=== PATIENT | female | born 1970 | race Caucasian/White ===

== ENCOUNTER 2016-08-14 06:45 | Emergency (ER) | payer MEDICAID, OTHER ==
[~2016-08-14 06:45] MED LIST: ALBU8.5H2 INHALATION; ARIP5TAB5 PO; ATOR80TA PO; ERGO500050 PO; FLUO40CA PO; FLUT10.62 IH; LEVE10006 PO; OMEG1CAP99 PO; OMEP20CA11 PO; PRAM0.5T3 PO; PROC-4 PO; SUMA100T2 PO
[2016-08-14 06:49] VITALS: BP 119/98; PULSE 91; RESP 18; O2SAT 98
--- NOTE | 2016-08-14 07:15 | ED.REPORT ---
HPI-Headache Date of Service Aug 14, 2016 ED Provider: Khang Mccord MD Pt is a 46 y.o. female with a hx of migraines and seizure disorder who presents to the ED c/o a migraine onset 0400. She reports associated nausea, vomiting, and photophobia. Pt claims that this migraine is more severe in pain than the migraines she typically has. She denies fever, weakness, abnormal speech, or vision changes. She also denies any recent trauma or injury. She typically takes Keppra in morning and was unable to today due to her nausea. Nursing Notes Stated Complaint: HEADACHE Chief Complaint: Headache Nursing Notes Reviewed: Yes Allergies: Coded Allergies: Cephalosporins (Verified Allergy, Severe, RASH, 03/07/15) Penicillins (Verified Allergy, Severe, RASH, 03/07/15) Sulfa (Sulfonamide Antibiotics) (Verified Allergy, Severe, RASH, 03/07/15) hydrocodone bitartrate (Verified Allergy, Severe, itch, 03/07/15) metronidazole (Verified Allergy, Severe, RASH, 03/07/15) morphine (Verified Allergy, Severe, ITCHING, 03/07/15) oxycodone HCl (Verified Allergy, Severe, itch, 03/07/15) phenytoin (Verified Allergy, Severe, RASH, 03/07/15) clindamycin (Verified Allergy, Unknown, UNKNOWN, 03/07/15) lamotrigine (Verified Allergy, Unknown, increased nervousness, rash, 03/07) Scheduled Albuterol HFA (Proair HFA) 8.5 Gm Hfa.aer.ad 2 PUFFS INHALATION Q4H Aripiprazole (Abilify) 5 Mg Tablet 5 MG PO DAILY Atorvastatin (Lipitor) 80 Mg Tablet 80 MG PO DAILY Fluoxetine (Fluoxetine) 40 Mg Capsule 40 MG PO DAILY Fluticasone Propionate (Flovent HFA 44 mcg) 10.6 Gm Aer.w.adap 2 PUFFS IH BID Levetiracetam (Levetiracetam) 1,000 Mg Tablet 1,000 MG PO BID [place]-3 Fatty Acids/Fish Oil (Fish Oil 1,200 mg Softgel) 1 Each Capsule 1 EACH PO DAILY Omeprazole (Omeprazole) 20 Mg Capsule.dr 20 MG PO DAILY Prochlorperazine Maleate (Compazine) 10 Mg Tablet 10 MG PO TID Sumatriptan Succinate (Sumatriptan Succinate) 100 Mg Tablet 100 MG PO DAILY Miscellaneous Medications Pramipexole Dihydrochloride (Mirapex) 0.5 Mg Tablet 0.5 MG PO General Time Seen by MD: 07:07 Chief Complaint Migraine headache Hx Obtained From: Patient Arrived By: Walk-in Sudden in Onset?: Yes Onset Occurred: 1 - 4 hours ago Symptom Duration: Since onset Location: : Generalized Quality: Painful Severity: Current: Severe Similar Sx Previous: Yes Past Medical History Past Medical History panic attacks, PTSD depression (possible bi-polar) seizures obstructive sleep apnea dyslipidemia asthma Reports: Hyperlipidemia, Denies: Cancer, Diabetes mellitus, Stroke Reports: Migraines, Seizure disorder, Denies: Thyroid disease Past Surgical History Bladder sling hysterectomy elbow surgery Reports: Appendectomy, Cholecystectomy, Hysterectomy Family History bi-polar & depression Reports: Stroke Smoking History Never Smoker Social History Alcohol Use: Denies alcohol use Drug Use: Denies drug use Other Social History: Local resident Ambulatory Status Independent Review of Systems Constitutional: Denies: Fever Eyes: Reports: Photophobia GI: Reports: Nausea, Vomiting Neurologic: Reports: Headache, Denies: Slurred speech, Unable to speak, Vision change, Weakness Complete sys rev & neg: except as marked. Physical Exam Initial Vital Signs Vital Signs (First) Date Time Temp Pulse Resp B/P Pulse Ox O2 Delivery O2 Flow Rate FiO2 08/14/16 06:49 36.4 91 18 119/98 98 Room Air Initial VS: Reviewed Respiratory: Breath sounds normal, No respiratory distress Cardiovascular: Regular rate & rhythm, Intact distal pulses Abdomen / GI: No distention Extremities: Vascular intact, Neuro intact Skin: Warm, Dry, No cyanosis Psychiatric: Mood/affect normal, Behavior normal, Normal thought content General/Constitutional: Awake, Alert, Well appearing, Well developed, Well hydrated, Well nourished, Not toxic appearing Appearance / Presentation: Positive: In pain, Obese Head / Eyes: Atraumatic, Normocephalic, PERRL, EOMI Neck: Atraumatic Neurologic: Oriented X3, Speech NL, No motor deficits, CN II - XII intact Interpretation & Diagnostics Lab Results Interpretation Test 08/14/16 08:40 Hold Purple Top Tube Received (Received) Hold Blue Top Tube Received (Received) Hold [place] Top Tube Received (Received) Re-Eval/Medical Decision Source of Hx: Old records Re-Evaluation/Progress #1: Time of Eval: 08:02 Re-Evaluation/Progress Note: Physical exam performed. Discussed plan for IV medication. Pt denies taking her Keppra this morning. Re-Evaluation/Progress #2: Time of Eval: 09:26 )( Patient Status: Condition improved, Pain improved Re-Evaluation/Progress Note: Pt rechecked. Pt's pain and nausea has improved. Discussed plan for discharge, pt understands and agrees with plan. Counseled Regarding: Diagnosis, Need for follow-up, When/why to return to ED Discharge & Departure Impression: Primary Impression: Migraine Migraine type: unspecified Status migrainosus presence: with status migrainosus Intractability: not intractable Qualified Code: G43.901 - Migraine, unspecified, not intractable, with status migrainosus Disposition: Home Discharge Condition All VS Reviewed: Yes Condition: Improved Patient Instructions: Migraine Headache (ED) Additional Instructions: No dangerous cause for the headache is suspected at this time. I expect that your headache will improve steadily over the coming hours. Go home and sleep as long as you can and if your headache persists Tuesday, follow-up at the clinic. Referrals: Devin Lock DO (PCP) Robyn Attestation Portions of this note were transcribed by Daisha Stringer. I, Dr. Mccord personally performed the history, physical exam and medical decision-making; I reviewed and confirmed the accuracy of the information in the transcribed note. Signed by: Robyn Ch, 08/14/16 and 1022. copies to: Devin Lock Kirk H MD Aug 14, 2016 07:15 DAISHA STRINGER Aug 14, 2016 08:04
[2016-08-14] MEDS ORDERED: 0.9% Sodium Chloride 1,000 ML IV ONE (07:17)
[2016-08-14] MEDS ORDERED: MetoCLOpramide 5 mg/mL 2 mL Inj IVPUSH ONE (07:20)
[2016-08-14] MEDS ORDERED: Dexamethasone 10 mg/mL Inj IVPUSH ONE (07:20)
[2016-08-14] MEDS ORDERED: Ondansetron 2 mg/mL 2 mL Inj IVPUSH ONE (07:20)
[2016-08-14 08:58] VITALS: BP 110/70; PULSE 87; RESP 16; O2SAT 92
[2016-08-14 10:45] VITALS: BP 119/69; PULSE 78; RESP 16
== END 2016-08-14 10:39 | disposition home or self-care (01) ==
LOC: SED 06:45
DX: G43.901 Migraine, unspecified, not intractable, with status migrainosus (principal); J45.909 Unspecified asthma, uncomplicated; E78.5 Hyperlipidemia, unspecified; G40.909 Epilepsy, unspecified, not intractable, without status epilepticus; Z88.1 Allergy status to other antibiotic agents; Z88.2 Allergy status to sulfonamides; Z88.0 Allergy status to penicillin; Z88.5 Allergy status to narcotic agent
CPT/HCPCS: 96361; 96374; 96375; 99284; J1100; J1200; J1885; J2405; J2765; J7030

== ENCOUNTER 2016-09-08 17:40 | Observation (INO) | payer OTHER ==
[~2016-09-08] VITALS: Ht 170.2 cm; Wt 105.6 kg
[~2016-09-08 17:40] MED LIST changes: -ERGO500050 PO
[2016-09-08 17:49] VITALS: BP 122/78; PULSE 98; RESP 18; O2SAT 97
[2016-09-08 18:46] LABS: BASOPHILS % (AUTO) 0.2 % (0-3); EOSINOPHILS % (AUTO) 0.1 % (0-5); MONOCYTES % (AUTO) 15.3 % (4-12); Mean Corpuscular Hemoglobin 30.4 pg (27.0-35.0); Mean Corpuscular Volume 90.2 fL (81-100); NEUTROPHILS % (AUTO) 69.4 % (40-74); Platelet Count 240 bil/L (150-400)
[2016-09-08 19:09] LABS: Magnesium 1.8 mg/dL (1.6-2.6)
[2016-09-08 20:18] LABS: APPEARANCE,URINE HAZY (CLEAR,HAZY); COLOR,URINE ORANGE (YELLOW); OCCULT BLOOD,URINE MODERATE (NEGATIVE)
[2016-09-08] MEDS ORDERED: Ondansetron 2 mg/mL 2 mL Inj IVPUSH ONE (20:40)
[2016-09-08] MEDS ORDERED: Ondansetron 2 mg/mL 2 mL Inj IVPUSH PRN (22:00)
[2016-09-08] MEDS ORDERED: Polyethylene Glycol (PEG) 17 Gm Powder PO PRN (22:00)
[2016-09-08] MEDS ORDERED: Alum-Mag Hydrox-Simeth 30 mL Suspension PO PRN (22:00)
[2016-09-08] MEDS: 0.9% Sodium Chloride 1,000 ML IV SCH ×2 (22:20→23:45)
[2016-09-08] MEDS ORDERED: LEVE10006 PO (22:21)
[2016-09-08] MEDS ORDERED: MULT-140 PO (22:24)
[2016-09-08] MEDS ORDERED: Ciprofloxacin Inj 400 MG in IV Premix 1 EACH IV ONE (22:30)
[2016-09-08 22:32] VITALS: BP 112/67; PULSE 91; RESP 16; O2SAT 95
[2016-09-08] MEDS: HYDROmorphone 0.5 mg/0.5 mL iSecure Syringe IVPUSH PRN (22:41)
[2016-09-08] MEDS: Ciprofloxacin Inj 400 MG in IV Premix 1 EACH IV SCH (22:43)
[2016-09-08 23:13] VITALS: BP 112/67; PULSE 91; RESP 16; O2SAT 95
[2016-09-08 23:37] VITALS: BP 100/66; PULSE 89; RESP 18; O2SAT 92
[2016-09-09] VITALS (7 sets, daily range): BP systolic 98–173; BP diastolic 60–81; PULSE 66–94; RESP 16–18; O2SAT 94–100
--- NOTE | 2016-09-09 00:29 | NUR ---
Admit Received report from Berenice DUNN RN @ [id number] arrived floor 2258 via tech ambulated to bed ind dx pyelonephritis/ sepsis orientated to room skin good pain level tolerable at this time Addendum: 09/09/16 at 0151 by ALYSSA MARCUM RN VS @ [id number] were entered in error wrong patient
--- NOTE | 2016-09-09 00:47 | PCM.HPMED ---
Subjective Date of Service Sep 09, 2016 Primary Provider: Admitting Physician: Mariluz George DO Primary Care Physician: Devin Lock DO Attending Physician: Mariluz George DO Admit Status: From the Emergency Department Chief Complaint: Right Flank Pain, Fever History of Present Illness: Very pleasant 46yo woman with hx of migraine, seizure disorder, HLD presented to our ER with pyelonephritis that had been [place] [facility] [place] gave her a first dose of oral Cipro which caused her to vomit at home. She [place] [facility] [place] was told to return to the ER and she chose to come to [facility]. She endorses right sided flank pain worsening over the last 3 days along with fever and chills. She denies dysuria, lower abdominal pain, urgency. She thinks she may have had two UTIs in the course of her life but not recently. From Dr Zabala's ER note: She states she attempted to have her nighttime dose of Keppra, vomited shortly after, she said she did not see the pills in her vomitus, believes she kept it down. She states she will most likely not have a seizure if she misses one dose Review of Systems: complete ROS is otherwise negative except as stated above in the HPI. Allergies Coded Allergies: Cephalosporins (Verified Allergy, Severe, RASH, 03/07/15) Penicillins (Verified Allergy, Severe, RASH, 03/07/15) Sulfa (Sulfonamide Antibiotics) (Verified Allergy, Severe, RASH, 03/07/15) hydrocodone bitartrate (Verified Allergy, Severe, itch, 03/07/15) metronidazole (Verified Allergy, Severe, RASH, 03/07/15) morphine (Verified Allergy, Severe, ITCHING, 03/07/15) oxycodone HCl (Verified Allergy, Severe, itch, 03/07/15) phenytoin (Verified Allergy, Severe, RASH, 03/07/15) clindamycin (Verified Allergy, Unknown, UNKNOWN, 03/07/15) lamotrigine (Verified Allergy, Unknown, increased nervousness, rash, 03/07) Home Medications Albuterol HFA PRN Atorvastatin 80mg PO qhs Fluoxetine 80mg daily Fluticasone Inhaler PRN Keppra 1000mg qam and 1500mg qhs Mirapex 0.5 mg PO qhs Compazine 10mg PO TID PRN Sumatriptan Succ 100mg PO PRN PMH Seizure disorder Migraine Depression RLS, HLD Seasonal Allergies Surgical History Hysterectomy Laparoscopic lysis of adhesion Cholecystectomy Appendectomy Elbow surgery Bladder Sling Family History Father is living, has DM2 and HLD Mother is living, has HLD Social History Hx Alcohol Use: No Hx Substance Use: No Smoking Status: Former Smoker Living Arrangement: with Family Exam Vital Signs Vital Sign - Last Date Time Temp Pulse Resp B/P Pulse Ox O2 Delivery O2 Flow Rate FiO2 09/08/16 23:37 37.6 89 18 100/66 92 Room Air Intake and Output 09/08/16 09/08/16 09/09/16 Cumulative From/Thru 15:00 23:00 07:00 09/08/16 17:49 - 09/08/16 23:37 Intake Total 1000 ml 1000 ml Balance 1000 ml 1000 ml Intake IV Total 1000 ml 1000 ml Exam General: Alert, Oriented X3, Cooperative, No Acute Distress Head: Normocephalic, atraumatic. External ears normal. Eyes: PERRLA, EOMI. Anicteric sclerae. Mouth: Mouth Normal, Mucous Membranes Moist/[place] Neck: Neck supple with full range of motion. Chest & Lungs: Clear to auscultation bilaterally with no crackles, wheezes, or rhonchi. Cardiovascular: Regular Rate/Rhythm, Normal S1, Normal S2, No Murmurs/Rubs/ Gallops Abdomen: Tender on the right, Non-distended, No masses, Normoactive bowel tones , Soft Musculoskeletal: CVA tenderness on the right, Normal Range of Motion Extremities: No cyanosis/clubbing/edema bilaterally Neurological: Grossly Neurologically Intact, Normal Speech Lab and Diagnostics Labs Laboratory Tests Test 09/08/16 18:30 09/08/16 18:40 09/08/16 19:54 09/08/16 21:51 Lactic Acid Level 1.3mmol/L (0.4-2.0) White Blood Count 15.1th/mm3 (3.8-10.1) Red Blood Count 4.41mil/mm3 (3.90-5.20) Hemoglobin 13.4g/dL (12.0-15.6) Hematocrit 39.8% (35.0-46.0) Mean Corpuscular Volume 90.2fL (81-100) Mean Corpuscular Hemoglobin 30.4pg (27.0-35.0) Mean Corpuscular Hemoglobin Concent 33.7% (32.0-37.0) Red Cell Distribution Width 13.0% (12.3-15.4) Platelet Count 240bil/L (150-400) Neutrophils (%) (Auto) 69.4% (40-74) Lymphocytes (%) (Auto) 14.7% (14-46) Monocytes (%) (Auto) 15.3% (4-12) Eosinophils (%) (Auto) 0.1% (0-5) Basophils (%) (Auto) 0.2% (0-3) Sodium Level 136mEq/L (134-144) Potassium Level 3.9mEq/L (3.5-5.2) Chloride Level 96mEq/L (97-108) Carbon Dioxide Level 22mmol/L (18-29) Blood Urea Nitrogen 8mg/dL (6-24) Creatinine 0.80mg/dL (0.57-1.00) Estimat Glomerular Filtration Rate 110mL/min (>59) Glucose Level 117mg/dL (60-99) Calcium Level 9.9mg/dL (8.5-10.1) Magnesium Level 1.8mg/dL (1.6-2.6) Total Bilirubin 1.0mg/dL (0.0-1.2) Aspartate Amino Transf (AST/SGOT) 19U/L (0-50) Alanine Aminotransferase (ALT/SGPT) 16U/L (0-32) Alkaline Phosphatase 88U/L (25-150) Total Protein 8.2g/dL (6.4-8.4) Albumin 4.1g/dL (3.4-5.0) Lipase 12U/L (13-60) Human Chorionic Gonadotropin, Qual Negative (Negative) Hold [place] Top Tube Received (Received) Received (Received) Urine Color [place] (YELLOW) Urine Appearance Hazy (CLEAR,HAZY) Urine pH (5.0-8.0) Urine Specific [place] 1.010 (1.003-1.035) Urine Protein mg/dL (NEG,TRACE) Urine Glucose (UA) Negativemg/dL (NEGATIVE) Urine Ketones mg/dL (NEGATIVE) Urine Occult Blood Moderate (NEGATIVE) Urine Nitrite (NEGATIVE) Urine Bilirubin (NEGATIVE) Urine Urobilinogen mg/dL (NORMAL) Urine Leukocyte Esterase (NEGATIVE) Urine RBC 3-10/hpf (0-2) Urine WBC >50/hpf (0-5) Urine Epithelial Cells Moderate/hpf (NONE-MOD) Urine Crystals None seen (NONE SEEN) Urine Bacteria Many/hpf (NONE-FEW) Urine Hyaline Casts None/lpf (NONE) Urine Granular Casts None seen (NONE SEEN) Urine Waxy Casts None seen (NONE SEEN) Urine Red Blood Cell Casts None seen (NONE SEEN) Urine White Blood Cell Casts None seen (NONE SEEN) Urine Mucus None seen (None Seen) Urine Trichomonas None seen (NONE SEEN) Urine Yeast None (NONE SEEN) Urinalysis Comment Color interference Urine Culture Reflexed Indicated Microbiology 09/08/16 Blood Culture, Received Pending 09/08/16 Urine Culture, Received Pending Result Diagram: 09/08/16 1840 09/08/16 1840 Microbiology Blood cultures x2 and urine culture pending Assessment & Plan Very pleasant 46yo woman with hx of migraine, seizure disorder, HLD presented to our ER with pyelonephritis that had been [place] earlier yesterday [place] [facility] [place] gave her a first dose of oral Cipro which caused her to vomit at home. She [place] [facility] and was told to return to the ER and she chose to come to [facility]. She endorses right sided flank pain worsening over the last 3 days along with fever and chills. She denies dysuria, lower abdominal pain, urgency. She thinks she may have had two UTIs in the course of her life but not recently. 1. Pyelonephritis, POA. UA positive for RBCs and >50 WBCs along with flank pain makes the diagnosis fairly certain. -NS 100ml/h IV -Ciprofloxacin 400mg IV q12h -dilaudid 0.5mg q4h PRN for pain -follow up blood cx 2. Sepsis, POA. T 38.2, WBC 15.1 -Treat as above, no NS bolus given in the ER as patient was hemodynamically stable, no tachycardia or tachypnea. 3. Seizure disorder, POA. -Continue home dosing of Keppra 4. Migraine history, POA -Sumatriptan hold while admitted 5. RLS, POA -Pramipexole continue 6. Hyperlipidemia, POA -Continue Atorvastatin 80mg daily as at home. PRN medications available for nausea, dyspepsia, constipation: Ondansetron, Maalox, Senna, Miralax. Pain Evaluation: Adequate Pain Control GI Prophylaxis: Not indicated VTE Prophylaxis: Sub-Q Heparin (Unfractionated) Resuscitation Status: CPR: Attempt Resuscitation Attending Statement The patient was seen and examined together with house staff on 09/09/2016 and I have added additional information to the note above. Bradley Sanchez DO Sep 09, 2016 00:47 Mariluz George DO Sep 09, 2016 01:56
--- NOTE | 2016-09-09 01:09 | ED.REPORT ---
HPI-Abd Pain F 40 and Over Date of Service Sep 08, 2016 ED Provider: Michael Crawford MD 46-year-old woman with history of migraines, seizure disorder, hyperlipidemia, presents to the emergency department for "kidney infection." She reportedly had fever chills and right-sided flank pain for the last 3 days, she went to [facility] emergency department today with a diagnosed her with pyelonephritis , started her on oral ciprofloxacin and Pyridium. She was given 1 dose of each in the emergency department and discharged, she then reported having nausea and vomiting, contacted [facility] told her to return to the emergency department, at which case she came to [facility]. She continues to have right-sided flank pain. Denies dysuria, urgency, rash. She said she has had kidney infection in the past, but it was a long time ago. Endorses some lightheadedness and feeling febrile. Denies shortness of breath, chest pain, weakness, confusion. She states she attempted to have her nighttime dose of Keppra, vomited shortly after, she said she did not see the pills in her vomitus, believes she kept it down. She states she will most likely not have a seizure if she misses one dose. Nursing Notes Stated Complaint: MEDICATION REACTION/VOMITING Chief Complaint: Female Abdominal Pain Allergies: Coded Allergies: Cephalosporins (Verified Allergy, Severe, RASH, 03/07/15) Penicillins (Verified Allergy, Severe, RASH, 03/07/15) Sulfa (Sulfonamide Antibiotics) (Verified Allergy, Severe, RASH, 03/07/15) hydrocodone bitartrate (Verified Allergy, Severe, itch, 03/07/15) metronidazole (Verified Allergy, Severe, RASH, 03/07/15) morphine (Verified Allergy, Severe, ITCHING, 03/07/15) oxycodone HCl (Verified Allergy, Severe, itch, 03/07/15) phenytoin (Verified Allergy, Severe, RASH, 03/07/15) clindamycin (Verified Allergy, Unknown, UNKNOWN, 03/07/15) lamotrigine (Verified Allergy, Unknown, increased nervousness, rash, 03/07) Scheduled Atorvastatin (Lipitor) 80 Mg Tablet 80 MG PO HS Fluoxetine (Fluoxetine) 40 Mg Capsule 80 MG PO QAM Levetiracetam (Levetiracetam) 1,000 Mg Tablet 1,000 MG PO QAM LEVETIRACETAM 1000 MG IN AM AND 1500 MG AT HS Levetiracetam (Levetiracetam) 1,000 Mg Tablet 1,500 MG PO HS LEVETIRACETAM 1000 MG IN AM AND 1500 MG AT HS Multivit with Calcium,Iron,Min (Therapeutic M) 1 Each Tablet 1 EACH PO DAILY Pramipexole Dihydrochloride (Mirapex) 0.5 Mg Tablet 0.5 MG PO HS Scheduled PRN Albuterol HFA (Proair HFA) 8.5 Gm Hfa.aer.ad 2 PUFFS INHALATION Q4H PRN PRN For Shortness of Breath Fluticasone Propionate (Flovent HFA 44 mcg) 10.6 Gm Aer.w.adap 2 PUFFS IH BID PRN PRN For Shortness of Breath Prochlorperazine Maleate (Compazine) 10 Mg Tablet 10 MG PO TID PRN PRN For Nausea/Vomiting Sumatriptan Succinate (Sumatriptan Succinate) 100 Mg Tablet 100 MG PO DAILY PRN PRN For Headache TAKE 100 MG AT ONSET OF MIGRAINE, MAY REPEAT IN 2 HRS IF NEEDED. MAX OF 2 DOSES IN 24 HRS General Time Seen by MD: 19:13 Chief Complaint Flank pain right Sudden in Onset?: Yes Similar Sx Previous: Yes Past Medical History Past Medical History panic attacks, PTSD depression (possible bi-polar) seizures obstructive sleep apnea dyslipidemia asthma Reports: Hyperlipidemia Reports: Migraines, Seizure disorder Past Surgical History Bladder sling hysterectomy elbow surgery Reports: Appendectomy, Cholecystectomy, Hysterectomy Family History bi-polar & depression Reports: Stroke Smoking History Never Smoker Social History Alcohol Use: Denies alcohol use Drug Use: Denies drug use Other Social History: Local resident Ambulatory Status Independent Review of Systems Complete sys rev & neg: except as marked. Physical Exam General: Laying in bed, no apparent distress. Obese HEENT: Normocephalic, atraumatic, EOMI grossly, mucous membranes moist, conjunctiva pink, neck supple without lymphadenopathy, trachea is midline. Cardiovascular: Regular rate and rhythm, no clicks murmurs rubs, peripheral pulses 2/4 equal bilaterally Pulmonary: Clear to auscultation bilaterally, no W/R/R. Abdominal: Soft to palpation, bowel sounds present 4, no hepatosplenomegaly. Negative rebound. There is tenderness to the right lower quadrant and right CVA , and suprapubic tenderness. Extremities: No edema appreciated. No tenderness, asymmetry. Neuro: Neurologically grossly intact, strength is equal bilaterally upper and lower extremities. MSK: Able to move extremities on their own volition, strength 5 out of 5 equal bilaterally to upper and lower extremities. Vital Signs Vital Signs (First) Date Time Temp Pulse Resp B/P Pulse Ox O2 Delivery O2 Flow Rate FiO2 09/08/16 17:49 38.2 98 18 122/78 97 Initial VS: Reviewed Interpretation & Diagnostics Lab Results Interpretation Result Diagram: 09/08/16 1840 09/08/16 1840 Test 09/08/16 18:30 09/08/16 18:40 09/08/16 19:54 Lactic Acid Level 1.3mmol/L (0.4-2.0) White Blood Count 15.1th/mm3 (3.8-10.1) Red Blood Count 4.41mil/mm3 (3.90-5.20) Hemoglobin 13.4g/dL (12.0-15.6) Hematocrit 39.8% (35.0-46.0) Mean Corpuscular Volume 90.2fL (81-100) Mean Corpuscular Hemoglobin 30.4pg (27.0-35.0) Mean Corpuscular Hemoglobin Concent 33.7% (32.0-37.0) Red Cell Distribution Width 13.0% (12.3-15.4) Platelet Count 240bil/L (150-400) Neutrophils (%) (Auto) 69.4% (40-74) Lymphocytes (%) (Auto) 14.7% (14-46) Monocytes (%) (Auto) 15.3% (4-12) Eosinophils (%) (Auto) 0.1% (0-5) Basophils (%) (Auto) 0.2% (0-3) Sodium Level 136mEq/L (134-144) Potassium Level 3.9mEq/L (3.5-5.2) Chloride Level 96mEq/L (97-108) Carbon Dioxide Level 22mmol/L (18-29) Blood Urea Nitrogen 8mg/dL (6-24) Creatinine 0.80mg/dL (0.57-1.00) Estimat Glomerular Filtration Rate 110mL/min (>59) Glucose Level 117mg/dL (60-99) Calcium Level 9.9mg/dL (8.5-10.1) Magnesium Level 1.8mg/dL (1.6-2.6) Total Bilirubin 1.0mg/dL (0.0-1.2) Aspartate Amino Transf (AST/SGOT) 19U/L (0-50) Alanine Aminotransferase (ALT/SGPT) 16U/L (0-32) Alkaline Phosphatase 88U/L (25-150) Total Protein 8.2g/dL (6.4-8.4) Albumin 4.1g/dL (3.4-5.0) Lipase 12U/L (13-60) Human Chorionic Gonadotropin, Qual Negative (Negative) Urine Color [place] (YELLOW) Urine Appearance Hazy (CLEAR,HAZY) Urine pH (5.0-8.0) Urine Specific [place] 1.010 (1.003-1.035) Urine Protein mg/dL (NEG,TRACE) Urine Glucose (UA) Negativemg/dL (NEGATIVE) Urine Ketones mg/dL (NEGATIVE) Urine Occult Blood Moderate (NEGATIVE) Urine Nitrite (NEGATIVE) Urine Bilirubin (NEGATIVE) Urine Urobilinogen mg/dL (NORMAL) Urine Leukocyte Esterase (NEGATIVE) Urine RBC 3-10/hpf (0-2) Urine WBC >50/hpf (0-5) Urine Epithelial Cells Moderate/hpf (NONE-MOD) Urine Crystals None seen (NONE SEEN) Urine Bacteria Many/hpf (NONE-FEW) Urine Hyaline Casts None/lpf (NONE) Urine Granular Casts None seen (NONE SEEN) Urine Waxy Casts None seen (NONE SEEN) Urine Red Blood Cell Casts None seen (NONE SEEN) Urine White Blood Cell Casts None seen (NONE SEEN) Urine Mucus None seen (None Seen) Urine Trichomonas None seen (NONE SEEN) Urine Yeast None (NONE SEEN) Urinalysis Comment Color interference Urine Culture Reflexed Indicated Lab Results Interpretation: White blood cells in urinalysis, Leukocytosis Hyperglycemia Urinary tract infection Re-Eval/Medical Decision Med Decision/Clinical Course Patient was evaluated based on laboratory results as well as physical presentation patient was deemed to have pyelonephritis and sepsis. Diagnosis was discussed with the patient and the need for admission was explained. Patient stated understanding and agreement. patient was given a dose of ciprofloxacin IV in the emergency department as well as IV fluids, and oral Tylenol for her fever. Counseled Regarding: Diagnosis, Lab results, Need for admission Discharge & Departure Primary Impression: Sepsis Sepsis type: sepsis due to unspecified organism Qualified Code: A41.9 - Sepsis, unspecified organism Additional Impression: Pyelonephritis Disposition: ADMITTED TO HOSPITAL Discharge Condition All VS Reviewed: Yes Condition: Stable Referrals: Devin Lock DO (PCP) EDSupervising Provider for APC: Michael Crawford MD Attending Statement Attending attestation: I saw this patient in conjunction with the above named resident. I was present for all [place]gs portions of the history taking and physical examination. I agree with the workup, evaluation, treatment and disposition. Michael Crawford MD copies to: Devin Lock Noah M DO Sep 08, 2016 21:02 Michael Crawford MD Sep 09, 2016 01:21
[2016-09-09] MEDS: HYDROmorphone 0.5 mg/0.5 mL iSecure Syringe IVPUSH PRN ×4 (02:47→15:56)
[2016-09-09] MEDS: levETIRAcetam 500 mg Tablet PO SCH ×2 (02:47→07:52)
[2016-09-09 07:18] LABS: BASOPHILS % (AUTO) 0.2 % (0-3); EOSINOPHILS % (AUTO) 4.2 % (0-5); MONOCYTES % (AUTO) 13.5 % (4-12); Mean Corpuscular Hemoglobin 31.1 pg (27.0-35.0); Mean Corpuscular Volume 90.3 fL (81-100); NEUTROPHILS % (AUTO) 66.6 % (40-74); Platelet Count 216 bil/L (150-400)
[2016-09-09] MEDS: Heparin 5,000 Unit/mL Inj SUBQ SCH ×2 (07:53→15:56)
[2016-09-09] MEDS: 0.9% Sodium Chloride 1,000 ML IV SCH (11:33)
[2016-09-09] MEDS: Ciprofloxacin Inj 400 MG in IV Premix 1 EACH IV SCH ×2 (11:33→23:07)
--- NOTE | 2016-09-09 11:36 | DRSVH ---
PROCEDURE: US RETROPERITONEAL SONOGRAM ([id number]) INDICATIONS: pyelo, ruleout hydronephrosis TECHNIQUE: Real-time scanning was performed of the kidneys and bladder, with image documentation. COMPARISON: [facility], CT, KUB - CT (PN), 02/27/2013, 12:43. FINDINGS: Kidneys: Kidneys are normal in size. Right kidney measures 12.0 cm long; left kidney measures 13.1 cm long. Right renal cortical thickness is 1.4 cm; left renal cortical thickness is 1.9 cm. Renal c ortical echotexture is normal. No hydronephrosis or nephrolithiasis. No suspicious solid mass lesio ns. Bladder: Bladder is semi-contracted. Pre-void bladder volume is 42 mL. Post-void residual is 28 mL. Pre-void images demonstrate no intraluminal masses or stones. On pre-void images, neither ureteral jets are noted with color Doppler interrogation. (Of note, ureteral jets may not be detectable in u p to 25% of cases due to insufficient differences in specific gravity between ureteral and bladder ur ine). Miscellaneous: No free pelvic fluid. Incidentally noted is diffusely increased hepatic echotexture. IMPRESSION: 1. Normal ultrasound appearance of kidneys. No hydronephrosis. 2. Bladder is semicontracted, therefore, not well seen. 3. Diffusely increased hepatic echotexture. This finding is most likely secondary to hepatic fatty i nfiltration although other hepatocellular disease may have a similar appearance. Recommend clinical c orrelation. Dictated by: Corina Schwab M.D. on 09/09/2016 at 11:32 Approved by: Corina Schwab M.D. on 09/09/2016 at 11:34
--- NOTE | 2016-09-09 15:12 | NUR ---
Social Work- Brief Note Data: EMR reviewed. Pt is a 46 year old female admitted 09/08/16 for pylenephritis, sepsis per H&P. Pt's insurance is [employer]. Pt's PCP is the [facility]. SW met with pt at bedside regarding discharge plan, SW role explained. Pt resides in [place] with friends [place]. Pt uses no DME. Pt has a history of panic attacks, depression, PTSD. SW spoke with pt regarding this, pt states that she feels these conditions are well managed with her fluoxetine. Pt declined additional MH resources and states she is not seeing a therapist or counselor. Pt has no DPOA on file. Pt to discharge home with friends to transport via POV. No anticipated discharge needs. SW will continue to follow. Assessment: [place]. Plan: Pt to discharge home with friends to transport via POV. No anticipated discharge needs. SW will continue to follow. Nguyen Hamilton MSW
--- NOTE | 2016-09-09 17:13 | NUR ---
Pain Pt's pain has been 5-6/10, located right side of back. Decreases to 3/10 with Dilaudid 0.5mg IV every 4 hours and PO APAP. Will continue to monitor.
[2016-09-09] MEDS ORDERED: diphenhydrAMINE 25 mg Capsule PO PRN (19:50)
[2016-09-09] MEDS: HYDROcodone-APAP 5-325 mg Tablet PO PRN (19:58)
--- NOTE | 2016-09-09 20:24 | PCM.PNMED ---
Subjective Date of Service Sep 09, 2016 Subjective The patient is examined. She says that she was able to keep food down today without feeling nauseated. She has been taking Dilaudid for pain control states that she had itching in the past. Oral pain medication. However she is willing to try Vicodin as she understands that she cannot take IV medications to go home. She denies fevers or chills. She has right upper quadrant pain, right lower quadrant and right flank pain. He does not have a gallbladder or appendix. No other concerns. Exam Vital Signs Vital Sign - Last Date Time Temp Pulse Resp B/P Pulse Ox O2 Delivery O2 Flow Rate FiO2 09/09/16 16:09 36.6 66 16 98/64 97 Room Air Intake and Output 09/08/16 09/08/16 09/09/16 Cumulative From/Thru 15:00 23:00 07:00 09/08/16 17:49 - 09/09/16 06:43 Intake Total 1000 ml 1128 ml 2128 ml Balance 1000 ml 1128 ml 2128 ml Intake Oral 240 ml 240 ml IV Total 1000 ml 888 ml 1888 ml # Voids 3 3 Exam Gen.: No acute distress sitting up in bed talking to children\ HEENT: Normocephalic atraumatic Heart: Regular ratewithout murmurs Lungs clear to auscultation wheezes Abdominal examination: Normal bowel sounds, soft, nondistended. She does have right upper quadrant and right lower quadrant, right flank pain to palpation Psych: Negative for anxiety Neuro: No focal deficits Extremities: Negative for swelling IVs and Medications IV Fluids None Medications Reviewed: Medications were reviewed in detail Lab and Diagnostics Result Diagram: 09/09/1662909/09/16 0630 Microbiology Blood cultures x2 and urine culture pending X-Rays, CTs and MRIs Abdominal ultrasound showed no consent for hydronephrosis Assessment & Plan Very pleasant 46yo woman with hx of migraine, seizure disorder, HLD presented to our ER with pyelonephritis that had been diagnosed earlier yesterday at [facility]. They gave her a first dose of oral Cipro which caused her to vomit at home. She called [facility] and was told to return to the ER and she chose to come to [facility]. She endorses right sided flank pain worsening over the last 3 days along with fever and chills. She denies dysuria, lower abdominal pain, urgency. She thinks she may have had two UTIs in the course of her life but not recently. 1. Pyelonephritis, POA. UA positive for RBCs and >50 WBCs along with flank pain makes the diagnosis fairly certain. -NS 100ml/h IV -Ciprofloxacin 400mg IV q12h -dilaudid 0.5mg q4h PRN for pain: Switched her to by mouth Vicodin, Benadryl when necessary for itching -follow up blood cx - We will consider an abdominal CT if no relief in symptoms tomorrow a.m. 2. Sepsis, POA. T 38.2, WBC 15.1 -Treat as above, no NS bolus given in the ER as patient was hemodynamically stable, no tachycardia or tachypnea. 3. Seizure disorder, POA. -Continue home dosing of Keppra 4. Migraine history, POA -Sumatriptan hold while admitted 5. RLS, POA -Pramipexole continue 6. Hyperlipidemia, POA -Continue Atorvastatin 80mg daily as at home. PRN medications available for nausea, dyspepsia, constipation: Ondansetron, Maalox, Senna, Miralax. GI Prophylaxis: Not indicated VTE Prophylaxis: Sub-Q Heparin (Unfractionated) Resuscitation Status: CPR: Attempt Resuscitation Awilda Naqvi DO Sep 09, 2016 20:24
[2016-09-09] MEDS ORDERED: levETIRAcetam 500 mg Tablet PO SCH (21:00)
[2016-09-10] MEDS: Heparin 5,000 Unit/mL Inj SUBQ SCH ×2 (01:33→07:35)
[2016-09-10] MEDS: HYDROcodone-APAP 5-325 mg Tablet PO PRN ×2 (03:40→07:35)
[2016-09-10 03:55] VITALS: PULSE 72
[2016-09-10 06:16] VITALS: BP 102/66; PULSE 70; RESP 16; O2SAT 95
[2016-09-10 07:14] LABS: Mean Corpuscular Hemoglobin 29.6 pg (27.0-35.0); Mean Corpuscular Volume 93.3 fL (81-100)
[2016-09-10] MEDS: levETIRAcetam 500 mg Tablet PO SCH (07:35)
[2016-09-10 08:00] VITALS: PULSE 72
--- NOTE | 2016-09-10 10:21 | DRSVH ---
PROCEDURE: CT KUB ([id number]) INDICATIONS: 46 year-old woman with right flank pain. The patient was treated with hydronephrosis. TECHNIQUE: Noncontrast 5 mm thick sections acquired from the diaphragms to the symphysis. 5 mm thick coronal an d sagittal reformats were then performed. For radiation dose reduction, the following was used: aut omated exposure control, adjustment of mA and/or kV according to patient size. COMPARISON: [facility], CT, KUB - CT ([facility]), 02/03/2013, 14:22. [facility], S, US RETROPERITONEAL, 09/09/2016, 10:48. [facility], CT, KUB - CT ([facility]), 02/27/2013, 12: 43. FINDINGS: Image quality: Excellent. Lung bases: Lung bases are clear. Heart size is normal. A tiny hiatal hernia is noted. Urinary system: Both kidneys are normal in size. No kidney stones. No hydronephrosis. There is mil d perinephric stranding and trace amount of perinephric fluid around the right kidney. Mild stranding is seen around the right renal pelvis and proximal right ureter. Both ureters appear non-dilated throughout their expected courses without ureteral stones. Bladder w all thickness is normal; no calcified bladder stones. Other solid organs: Liver and spleen are normal in size. Gallbladder is surgically absent. Pancrea s is normal in contours. No adrenal nodules. Peritoneum and bowel: Appendix is absent. Surgical clips are noted in the right lower quadrant. Unen hanced bowel loops demonstrate normal wall thickness and caliber. No free fluid or air. Nodes and vessels: No retroperitoneal or mesenteric adenopathy by size criteria. Aorta and inferior vena cava are normal in caliber. Abdominal wall: No ventral hernias. Pelvis: No free pelvic fluid. No inguinal hernias or adenopathy. Bones: No suspicious bony lesions. No vertebral body compression fractures. There is grade 1 anter olisthesis of L4 over L5. Degenerative disc disease and facet arthropathy in lower lumbar spine. IMPRESSION: 1. There is mild right perinephric stranding and trace amount of perinephric fluid. No renal stone o r hydronephrosis. Dictated by: Corina Schwab M.D. on 09/10/2016 at 10:05 Transcribed by: LANG on 09/10/2016 at 10:21 Approved by: Corina Schwab M.D. on 09/10/2016 at 22:06
[2016-09-10] MEDS ORDERED: HYDR-3090 PO (11:09)
[2016-09-10] MEDS ORDERED: ONDA8TAB7 PO (11:09)
[2016-09-10] MEDS ORDERED: DIPH25CA6 PO (11:09)
[2016-09-10] MEDS ORDERED: NPR500T PO (11:09)
[2016-09-10] MEDS ORDERED: CIPR-198 PO (11:10)
[2016-09-10] MEDS: Ciprofloxacin Inj 400 MG in IV Premix 1 EACH IV SCH (11:10)
[2016-09-10 11:11] VITALS: BP 111/72; PULSE 66; RESP 16; O2SAT 95
--- NOTE | 2016-09-10 11:14 | PCM.DIMED ---
Discharge Instructions Date of Service Sep 10, 2016 Dates of Hospitalization Sep 08, 2016 at 21:12 Discharge Diagnosis Discharge Diagnosis pyelonephritis, musculoskeletal back pain, migraines, seizures, panic attacks, asthma, hyperlipidemia Diet No restrictions Activity No restrictions Call your provider Fever or Chills, Shortness of breath, Bleeding, Chest pain, Vomitting, Excessive diarrhea, Weakness (unilateral), Other Patient Instructions Please hydrate well, use the nausea and pain meds as directed. You have taken vicodin here with benadryl and tolerated it well. please take them only for severe pain. Follow-up with PCP in: 2 weeks Awilda Naqvi DO Sep 10, 2016 11:13
--- NOTE | 2016-09-10 12:20 | NUR ---
Social work note - Discharge Ivet Kaiser is feeling better - MD identifies that pain is better controlled, pt able to eat. CT is negative. Pt denies any needs - friends to provide transportation. Pt will follow up with [facility]. Plan: Home with friends, no needs identified. ELISA Llanos
--- NOTE | 2016-09-10 17:35 | NUR ---
Discharge Pt discharged from unit, accompanied by her daughter. Pt provided with information on diagnosis, medications, signs to watch for, and follow up. Pt taken off floor in wheelchair with her belongings.
--- NOTE | 2016-09-10 21:45 | PCM.DC.MED ---
Discharge Summary Date of Service Sep 10, 2016 Dates of Hospitalization Date of Hospital Admission Sep 08, 2016 at 21:12 Date of Discharge: Sep 10, 2016 Providers: Admitting Physician: Mariluz George DO Primary Care Physician: Devin Lock DO Attending Physician: Mariluz George DO Diagnosis at Time of Discharge Diagnosis at Time of Discharge pyelonephritis, musculoskeletal back pain, migraines, seizures, panic attacks, asthma, hyperlipidemia Consultations None Procedures XRay, CTs & MRIs Abdominal ultrasound showed no consent for hydronephrosis [facility] Diagnostic Imaging [place] [address] Patient Name: NICK VIEIRA MR#: [id number] Location: [facility] Ordering Phys: Awilda Calero DO Date of Service: 09/10/16 0914 Caution: Report not yet finalized and possibly incomplete! PROCEDURE: CT KUB ([id number]) INDICATIONS: 46 year-old woman with right flank pain. The patient was treated with hydronephrosis. TECHNIQUE: Noncontrast 5 mm thick sections acquired from the diaphragms to the symphysis. 5 mm thick coronal and sagittal reformats were then performed. For radiation dose reduction, the following was used: automated exposure control, adjustment of mA and/or kV according to patient size. COMPARISON: [facility], CT, KUB - CT ([facility]), 02/03/2013, 14:22. [facility], US, US RETROPERITONEAL, 09/09/2016, 10:48. [facility], CT, KUB - CT ([facility]), 02/27/2013, 12:43. FINDINGS: Image quality: Excellent. Lung bases: Lung bases are clear. Heart size is normal. A tiny hiatal hernia is noted. Urinary system: Both kidneys are normal in size. No kidney stones. No hydronephrosis. There is mild perinephric stranding and trace amount of perinephric fluid around the right kidney. Mild stranding is seen around the right renal pelvis and proximal right ureter. Both ureters appear non-dilated throughout their expected courses without ureteral stones. Bladder wall thickness is normal; no calcified bladder stones. Other solid organs: Liver and spleen are normal in size. Gallbladder is surgically absent. Pancreas is normal in contours. No adrenal nodules. Peritoneum and bowel: Appendix is absent. Surgical clips are noted in the right lower quadrant. Unenhanced bowel loops demonstrate normal wall thickness and caliber. No free fluid or air. Nodes and vessels: No retroperitoneal or mesenteric adenopathy by size criteria. Aorta and inferior vena cava are normal in caliber. Abdominal wall: No ventral hernias. Pelvis: No free pelvic fluid. No inguinal hernias or adenopathy. Bones: No suspicious bony lesions. No vertebral body compression fractures. There is grade 1 anterolisthesis of L4 over L5. Degenerative disc disease and facet arthropathy in lower lumbar spine. IMPRESSION: 1. There is mild right perinephric stranding and trace amount of perinephric fluid. No renal stone or hydronephrosis. Dictated by: Corina Schwab M.D. on 09/10/2016 at 10:05 Transcribed by: LANG on 09/10/2016 at 10:21 Brief History Very pleasant 46yo woman with hx of migraine, seizure disorder, HLD presented to our ER with pyelonephritis that had been diagnosed earlier today at [facility]. They gave her a first dose of oral Cipro which caused her to vomit at home. She called [facility] and was told to return to the ER and she chose to come to [facility]. She endorses right sided flank pain worsening over the last 3 days along with fever and chills. She denies dysuria, lower abdominal pain, urgency. She thinks she may have had two UTIs in the course of her life but not recently. From Dr Zabala's ER note: She states she attempted to have her nighttime dose of Keppra, vomited shortly after, she said she did not see the pills in her vomitus, believes she kept it down. She states she will most likely not have a seizure if she misses one dose Hospital Course Very pleasant 46yo woman with hx of migraine, seizure disorder, HLD presented to our ER with pyelonephritis that had been diagnosed earlier yesterday at [facility]. They gave her a first dose of oral Cipro which caused her to vomit at home. She called [facility] and was told to return to the ER and she chose to come to [facility]. She endorses right sided flank pain worsening over the last 3 days along with fever and chills. She denies dysuria, lower abdominal pain, urgency. She thinks she may have had two UTIs in the course of her life but not recently. 1. Sepsis secondary to pyelonephritis , POA. UA positive for RBCs and >50 WBCs along with flank pain makes the diagnosis fairly certain. -NS 100ml/h IV -Ciprofloxacin 400mg IV q12h -dilaudid 0.5mg q4h PRN for pain: Switched her to by mouth Vicodin, Benadryl when necessary for itching -follow up blood cx: Ngtd -- Urine cultures did not show significant growth lately because she was already treated with Cipro by the time she got admitted - We will consider an abdominal CT if no relief in symptoms tomorrow a.m.: CT kidney stone protocol without contrast is ordered this a.m. radiologist called and noted perinephric stranding on the right side, he that this could be due to resolving. Pyelonephritis. -- Patient's records from [facility] ER visit were obtained and reviewed. Showed Escherichia coli in the urine culture sensitive to Cipro. -- We will give her Cipro by mouth for discharge enough for a total treatment of 14 days -- Also gave her naproxen when necessary, 5 tablets of Vicodin plus Benadryl ( as she tolerated this quite well overnight in spite of the above-stated allergies, discussed this with patient and she is agreeable to this plan) 2. Seizure disorder, POA. -Continue home dosing of Keppra 3. Musculoskeletal pain over right flank: Naproxen when necessary 4. Migraine history, POA -Sumatriptan 1 dose prior to discharge was given due to headaches. I asked her to discuss with her PCP the possibility of getting migraine prophylaxis as she tells me that she is taking it more regularly than ever 5. RLS, POA -Pramipexole continue 6. Hyperlipidemia, POA -Continue Atorvastatin 80mg daily as at home. PRN medications available for nausea, dyspepsia, constipation: Ondansetron, Maalox, Senna, Miralax. Exam Vital Signs (Last) Date Time Temp Pulse Resp B/P Pulse Ox O2 Delivery O2 Flow Rate FiO2 09/10/16 11:11 36.8 66 16 111/72 95 09/10/16 06:16 Room Air Exam General: NAD, laying in bed HEENT: NCAT, Eyes: Strawberry conjunctivae. No ptosis, PERRL Neck: No masses, trachea midline, no thyromegaly Lungs: CTA with normal respiratory effort, no crackles or wheezes CV: RRR, no murmurs/rubs/gallops, normal PMI GI: Soft, non-tender with no hepatosplenomegaly, MSK: Normal gait and station, no digital cyanosis, muscle energy treatment of the right lower spine provided relief indicating that there is a musculoskeletal component to her pain Skin: Warm and dry. Psych: A&O X3, with appropriate affect Neuro: No focal deficits Test 09/08/16 18:30 09/08/16 18:40 09/08/16 19:54 09/08/16 21:51 Lactic Acid Level 1.3mmol/L (0.4-2.0) Hemoglobin A1c 5.7% (4.8-5.6) Magnesium Level 1.8mg/dL (1.6-2.6) Lipase 12U/L (13-60) Human Chorionic Gonadotropin, Qual Negative (Negative) Urine Color [place] (YELLOW) Urine Appearance Hazy (CLEAR,HAZY) Urine pH (5.0-8.0) Urine Specific [place] 1.010 (1.003-1.035) Urine Protein mg/dL (NEG,TRACE) Urine Glucose (UA) Negativemg/dL (NEGATIVE) Urine Ketones mg/dL (NEGATIVE) Urine Occult Blood Moderate (NEGATIVE) Urine Nitrite (NEGATIVE) Urine Bilirubin (NEGATIVE) Urine Urobilinogen mg/dL (NORMAL) Urine Leukocyte Esterase (NEGATIVE) Urine RBC 3-10/hpf (0-2) Urine WBC >50/hpf (0-5) Urine Epithelial Cells Moderate/hpf (NONE-MOD) Urine Crystals None seen (NONE SEEN) Urine Bacteria Many/hpf (NONE-FEW) Urine Hyaline Casts None/lpf (NONE) Urine Granular Casts None seen (NONE SEEN) Urine Waxy Casts None seen (NONE SEEN) Urine Red Blood Cell Casts None seen (NONE SEEN) Urine White Blood Cell Casts None seen (NONE SEEN) Urine Mucus None seen (None Seen) Urine Trichomonas None seen (NONE SEEN) Urine Yeast None (NONE SEEN) Urinalysis Comment Color interference Urine Culture Reflexed Indicated Hold Decker Top Tube Received (Received) Test 09/09/16 06:30 09/10/16 07:00 Neutrophils (%) (Auto) 66.6% (40-74) Lymphocytes (%) (Auto) 14.5% (14-46) Monocytes (%) (Auto) 13.5% (4-12) Eosinophils (%) (Auto) 4.2% (0-5) Basophils (%) (Auto) 0.2% (0-3) White Blood Count 9.4th/mm3 (3.8-10.1) Red Blood Count 3.72mil/mm3 (3.90-5.20) Hemoglobin 11.0g/dL (12.0-15.6) Hematocrit 34.7% (35.0-46.0) Mean Corpuscular Volume 93.3fL (81-100) Mean Corpuscular Hemoglobin 29.6pg (27.0-35.0) Mean Corpuscular Hemoglobin Concent 31.7% (32.0-37.0) Red Cell Distribution Width 13.1% (12.3-15.4) Platelet Count 247bil/L (150-400) Sodium Level 142mEq/L (134-144) Potassium Level 4.2mEq/L (3.5-5.2) Chloride Level 106mEq/L (97-108) Carbon Dioxide Level 21mmol/L (18-29) Blood Urea Nitrogen 7mg/dL (6-24) Creatinine 0.64mg/dL (0.57-1.00) Estimat Glomerular Filtration Rate 142mL/min (>59) Glucose Level 109mg/dL (60-99) Calcium Level 8.9mg/dL (8.5-10.1) Total Bilirubin 0.5mg/dL (0.0-1.2) Aspartate Amino Transf (AST/SGOT) 30U/L (0-50) Alanine Aminotransferase (ALT/SGPT) 30U/L (0-32) Alkaline Phosphatase 90U/L (25-150) Total Protein 6.3g/dL (6.4-8.4) Albumin 3.6g/dL (3.4-5.0) Microbiology Results Blood cultures x2 negative to date and urine culture showed no significant growth Discharge Medications Discharge Medications Atorvastatin (Lipitor) 80 Mg Tablet 80 MG PO HS (Reported) Ciprofloxacin (Ciprofloxacin) 500 Mg Tablet 500 MG PO BID Prescribed by: AWILDA CALERO DO Fluoxetine (Fluoxetine) 40 Mg Capsule 80 MG PO QAM (Reported) Levetiracetam (Levetiracetam) 1,000 Mg Tablet 1,000 MG PO QAM (Reported) LEVETIRACETAM 1000 MG IN AM AND 1500 MG AT HS Levetiracetam (Levetiracetam) 1,000 Mg Tablet 1,500 MG PO HS (Reported) LEVETIRACETAM 1000 MG IN AM AND 1500 MG AT HS Multivit with Calcium,Iron,Min (Therapeutic M) 1 Each Tablet 1 EACH PO DAILY ( Reported) Pramipexole Dihydrochloride (Mirapex) 0.5 Mg Tablet 0.5 MG PO HS (Reported) As needed Albuterol HFA (Proair HFA) 8.5 Gm Hfa.aer.ad 2 PUFFS INHALATION Q4H PRN PRN For Shortness of Breath (Reported) Fluticasone Propionate (Flovent HFA 44 mcg) 10.6 Gm Aer.w.adap 2 PUFFS IH BID PRN PRN For Shortness of Breath (Reported) Hydrocodone-Acetaminophen 5-300 mg (Hydrocodone-Acetaminophen 5-300 mg) 1 Each Tablet 1 TABLET PO Q4H PRN PRN For Pain Prescribed by: AWILDA CALERO DO Naproxen (Naproxen) 500 Mg Tab 500 MG PO BID PRN PRN For Pain Prescribed by: AWILDA CALERO DO Ondansetron ODT (Zofran ODT) 8 Mg Tablet 8 MG PO Q4H PRN PRN For Nausea Prescribed by: AWILDA CALERO DO Sumatriptan Succinate (Sumatriptan Succinate) 100 Mg Tablet 100 MG PO DAILY PRN PRN For Headache (Reported) TAKE 100 MG AT ONSET OF MIGRAINE, MAY REPEAT IN 2 HRS IF NEEDED. MAX OF 2 DOSES IN 24 HRS diphenhydrAMINE HCl (Benadryl) 25 Mg Capsule 25 MG PO Q6H PRN PRN For Itching Prescribed by: AWILDA CALERO DO Followup Plan Discharge Diet: No restrictions Discharge Activity: No restrictions Patient Instructions Please hydrate well, use the nausea and pain meds as directed. You have taken vicodin here with benadryl and tolerated it well. please take them only for severe pain. Follow-up with PCP in: 2 weeks Awilda Calero DO Sep 10, 2016 11:15
== END 2016-09-10 17:45 | disposition home or self-care (01) ==
LOC: SED 17:40 → MOC 21:12
PROVIDERS: ADMIT Internal Medicine; ATTEND Family Medicine
DX: N10 Acute pyelonephritis (principal); A41.9 Sepsis, unspecified organism; A49.8 Other bacterial infections of unspecified site; M54.9 Dorsalgia, unspecified; G40.909 Epilepsy, unspecified, not intractable, without status epilepticus; E78.5 Hyperlipidemia, unspecified; G25.81 Restless legs syndrome; F43.10 Post-traumatic stress disorder, unspecified; F41.0 Panic disorder [episodic paroxysmal anxiety]; F32.9 Major depressive disorder, single episode, unspecified; G47.33 Obstructive sleep apnea (adult) (pediatric); J45.909 Unspecified asthma, uncomplicated; Z88.8 Allergy status to other drugs, medicaments and biological substances; Z87.891 Personal history of nicotine dependence; Z90.710 Acquired absence of both cervix and uterus
CPT/HCPCS: 36415; 74176; 76770; 80048; 80053; 81000; 83036; 83605; 83690; 83735; 84703; 85025; 85027; 87040; 87086; 87088; 96361; 96365; 96366; 96375; 96376; 99285; G0378; J0744; J1170; J1644; J2405; J7030